=== PATIENT | male | born 1945 | race Caucasian/White ===

== ENCOUNTER → 2023-05-06 | Day surgery (SDC) | payer MEDICARE, BC ==
[~2023-05-06] MED LIST: Propofol 200 MG/20 ML SDV ONE; fentaNYL 100 MCG/2 ML SDV ONE
[2023-05-06] MEDS: Sodium Chloride 0.9% 1,000 ML IV SCH (09:24)
[2023-05-06 11:01] VITALS: BP 109/72; PULSE 54
== END ==
LOC: JP.SDS 08:50
PROVIDERS: ATTEND Surgery
DX: Z12.11 Encounter for screening for malignant neoplasm of colon (principal); D12.0 Benign neoplasm of cecum; D12.3 Benign neoplasm of transverse colon; K21.9 Gastro-esophageal reflux disease without esophagitis; I25.10 Atherosclerotic heart disease of native coronary artery without angina pectoris
CPT/HCPCS: 45380; 45385; 88305; J2704; J3010; J7030